=== PATIENT | male | born 1955 | race Caucasian/White ===

== ENCOUNTER → 2019-10-02 | Outpatient (CLI) | payer OTHER | LOC: COL.RAD 10:05 | DX: R74.0 Nonspecific elevation of levels of transaminase and lactic acid dehydrogenase [LDH] (principal) ==

== ENCOUNTER 2020-08-04 15:29 | Observation (INO) | payer MEDICARE ==
[~2020-08-04] VITALS: Ht 182.9 cm; Wt 87.9 kg
[2020-08-04 16:30] LABS: INR 1.1 (0.8-3.0)
[2020-08-04 16:33] LABS: PARTIAL THROMBOPLASTIN TIME 35.3 SECONDS (26.0-37.0)
[2020-08-04 16:34] LABS: MAGNESIUM 2.3 mg/dL (1.6-2.3)
[2020-08-04 16:38] LABS: D-DIMER < 200.00 ng/mLDDu (200-230)
[2020-08-04 16:51] LABS: TROPONIN-I 0.13 ng/mL (0.000-0.035)
[2020-08-04 19:02] VITALS: BP 129/82; PULSE 78; TEMP 98.2
[2020-08-04] MEDS ORDERED: MEN'S ONE DAIL1 EACH PO (20:07)
[2020-08-04] MEDS ORDERED: CURCUMIN95% PO (20:07)
[2020-08-04] MEDS ORDERED: EPA FISH OIL1 SGL PO (20:08)
--- NOTE | 2020-08-04 20:19 | NUR ---
Initial assessment complete. Lungs clear. Heart sounds normal. Bowels active x4. Pulses present throughout. No edema noted. IV to left AC free of complications. Denies pain at this time. Orientated to medical floor. All questions answered. Denies needs at this time. Will monitor. Med rec complete. Allergies reviewed.
--- NOTE | 2020-08-04 22:38 | NUR ---
Troponin 0.101. Pascale LOU notified
[2020-08-04 23:06] VITALS: BP 132/70; PULSE 62; TEMP 97.8
--- NOTE | 2020-08-04 23:22 | NUR ---
Resting in bed. Denies needs. Denies pain. Call light in reach.
--- NOTE | 2020-08-05 03:29 | NUR ---
Resting in bed. Denies needs. Call light in reach.
[2020-08-05 03:37] VITALS: BP 129/66; PULSE 56; TEMP 97.8
--- NOTE | 2020-08-05 05:09 | NUR ---
Patient had uneventful night. Resting in bed this AM. Call light in reach.
[2020-08-05 06:44] LABS: BASO % 0.4 % (0.0-2.0); EOS # 0.2 (0.0-0.7); EOS % 4.2 % (0-4.0); GRAN # 2.4 (1.4-6.5); GRAN % 51.3 % (42.2-75.2); HEMATOCRIT 45.6 % (42.0-52.0); HEMOGLOBIN 16.1 g/dl (13.5-18.0); LYMPH # 1.7 (1.2-3.4); LYMPH % 35.9 % (20.0-51.0); MEAN CELL VOLUME 93 fl (80.0-100.0); MEAN CORPUSCULAR HEMOGLOBIN 33 pg (27.0-31.0); MEAN CORPUSCULAR HGB CONC 35 g/dl (33.0-37.0); MEAN PLATELET VOLUME 11.1 fl (7.4-10.4); MONO # 0.4 (0.1-0.6); PLATELET COUNT 112 K/mm3 (130-400); REDCELL DISTRIBUTION WIDTH-CV 12.8 % (11.5-14.5)
[2020-08-05 06:57] LABS: CALCIUM 9.1 mg/dL (8.4-10.2); CHOLESTEROL RISK RATIO 6.4; CREATININE, serum 1.06 (0.66-1.25)
--- NOTE | 2020-08-05 07:01 | NUR ---
Report given to JESSE Magana
[2020-08-05 07:38] VITALS: BP 137/73; PULSE 67; TEMP 97.9
--- NOTE | 2020-08-05 08:12 | NUR ---
Pt awake and alert upon entry, talkative and appropriate, answered and educated Pt on need and effect of taking ASA, has no C/O pain currently. Shift assessment complete, left Pt call light in reach, bed in lowest position.
--- NOTE | 2020-08-05 13:17 | NUR ---
Pt discharged to home, discussed discharge information with Pt, answered questions. Pt escorted to entrance, Pt left with spouse via private transportation.
== END 2020-08-05 13:10 | disposition home or self-care (01) ==
LOC: COL.ER 15:29 → MEDICAL 17:23
PROVIDERS: Emergency Medicine; ADMIT Hospitalist
DX: R77.8 Other specified abnormalities of plasma proteins (principal); R00.0 Tachycardia, unspecified; E78.5 Hyperlipidemia, unspecified; Z79.899 Other long term (current) drug therapy; Z82.49 Family history of ischemic heart disease and other diseases of the circulatory system
CPT/HCPCS: 99222-AI; G0378; J1650; J7030

== ENCOUNTER → 2020-08-04 | Outpatient (CLI) | payer MEDICARE ==
[~2020-08-04] MED LIST: CURCUMIN95% PO; EPA FISH OIL1 SGL PO; MEN'S ONE DAIL1 EACH PO
[2020-08-04 14:29] LABS: BASO % 0.4 % (0.0-2.0); EOS # 0.1 (0.0-0.7); EOS % 1.8 % (0-4.0); GRAN # 5.5 (1.4-6.5); GRAN % 69.3 % (42.2-75.2); HEMATOCRIT 49.7 % (42.0-52.0); HEMOGLOBIN 17.7 g/dl (13.5-18.0); LYMPH # 1.6 (1.2-3.4); LYMPH % 20.2 % (20.0-51.0); MEAN CELL VOLUME 91 fl (80.0-100.0); MEAN CORPUSCULAR HEMOGLOBIN 32 pg (27.0-31.0); MEAN CORPUSCULAR HGB CONC 36 g/dl (33.0-37.0); MEAN PLATELET VOLUME 10.8 fl (7.4-10.4); MONO # 0.6 (0.1-0.6); PLATELET COUNT 148 K/mm3 (130-400); RED BLOOD COUNT 5.47 M/mm3 (4.20-5.60); REDCELL DISTRIBUTION WIDTH-CV 12.4 % (11.5-14.5)
[2020-08-04 14:44] LABS: CALCIUM 10.2 mg/dL (8.4-10.2); CREATININE, serum 1.17 (0.66-1.25)
[2020-08-04 15:08] LABS: TROPONIN-I 0.084 ng/mL (0.000-0.035)
[2020-08-04 15:13] LABS: THYROID STIMULATING HORMONE 2.14 uIU/mL (0.465-4.680)
== END ==
LOC: COL.LAB 13:46
PROVIDERS: Family Medicine
DX: R00.0 Tachycardia, unspecified (principal)

== ENCOUNTER → 2021-11-08 | Outpatient (CLI) | payer MEDICARE | LOC: COL.RAD 11:08 | DX: I25.10 Atherosclerotic heart disease of native coronary artery without angina pectoris (principal); Q33.2 Sequestration of lung | CPT/HCPCS: Q9967 ==